=== PATIENT | male | born 1995 | race Caucasian/White ===

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

== ENCOUNTER 2017-12-14 19:58 | Emergency (ER) | payer OTHER ==
[2017-12-14] MEDS: IBUPROFEN 800 MG TAB PO (22:49)
== END 2017-12-14 23:03 | disposition home or self-care (01) ==
LOC: M ED 19:58
DX: S90.31XA Contusion of right foot, initial encounter (principal); R20.0 Anesthesia of skin; W20.8XXA Other cause of strike by thrown, projected or falling object, initial encounter; X58.XXXA Exposure to other specified factors, initial encounter; Y92.099 Unspecified place in other non-institutional residence as the place of occurrence of the external cause; Y93.9 Activity, unspecified; Y99.9 Unspecified external cause status; Z88.0 Allergy status to penicillin; Z88.1 Allergy status to other antibiotic agents; Z88.8 Allergy status to other drugs, medicaments and biological substances
CPT/HCPCS: 73630

== ENCOUNTER → 2018-01-12 | Outpatient (CLI) | payer OTHER | LOC: M WUC 15:05 | DX: S90.31XA Contusion of right foot, initial encounter (principal); X58.XXXA Exposure to other specified factors, initial encounter; Y92.9 Unspecified place or not applicable | CPT/HCPCS: 73630 ==

== ENCOUNTER → 2022-01-09 | Outpatient (CLI) | payer OTHER ==
[~2022-01-09] MED LIST: IBUP80TA PO
== END ==
LOC: M PLAIMG 13:44
PROVIDERS: ATTEND Physician Assistant
DX: M25.471 Effusion, right ankle (principal); M19.071 Primary osteoarthritis, right ankle and foot